=== PATIENT | male | born 1935 | race Caucasian/White ===

== ENCOUNTER 2024-02-09 09:50 | Emergency (ER) | payer OTHER, SELFPAY ==
[2024-02-09 09:55] VITALS: BP 127/83
[2024-02-09 11:05] VITALS: BP 121/69
[2024-02-09 11:20] VITALS: BMI 25.3
[2024-02-09 11:23] LABS: % Basophils 0.4 % (0-2); % Eosinophils 2.9 % (0-6); % Immature Granulocytes 0.4 % (0-0.5); % Lymphocytes 14.3 % (20.5-51.1); % Monocytes 11.5 % (1.7-9.3); % Neutrophils 70.5 % (42.2-75.2); Absolute Eosinophils 0.2 10^3/uL (0-0.7); Absolute Monocytes 0.8 10^3/uL (0.1-0.6); Absolute Neutrophils 4.9 10^3/uL (1.4-6.5); Hematocrit 32.4 % (39.0-52.0); Mean Corpuscular Hgb 31.7 pg (27.0-31.0); Mean Corpuscular Volume 93.4 fL (80.0-94.0); Mean Platelet Volume 10.5 fL (7.4-10.4); Nucleated Red Blood Cells % 0 % (-); Platelet Count 238 10^3/uL (130-400); Red Blood Cell Count 3.47 10^6/uL (4.70-6.10); Red Cell Dist. Width 14.2 % (11.5-14.5)
[2024-02-09 11:39] LABS: ALT (SGPT) 24 U/L (0-50); AST (SGOT) 31 U/L (17-59); Albumin 2.9 g/dl (3.5-5.0); Alkaline Phosphatase 124 U/L (38-126); Blood Urea Nitrogen 40 mg/dl (9-20); Calcium 8.3 mg/dl (8.4-10.2); Carbon Dioxide 21 mmol/L (22-30); Chloride 108 mmol/L (98-107); Estimated Creatinine Clearance 27 ml/min; Glucose 166 mg/dl (70-99); Lipase 39 U/L (23-300); Potassium 4.7 mmol/L (3.5-5.1); Sodium 132 mmol/L (135-145); Total Bilirubin 0.7 mg/dl (0.2-1.3); Total Protein 5.1 g/dl (6.3-8.2); eGFR 36.21
--- NOTE | 2024-02-09 12:13 | ED.GENMED ---
History of Present Illness
General
Chief Complaint: Abdominal Pain
Source: patient
Exam Limitations: none
Time Seen by Provider: 02/09/24 10:37
Nursing documentation reviewed up to this point in time: agreed with
Travel History
Have you had any contact with someone who has COVID-19?: No
Do you have any symptoms of coronavirus? Fever > 100 degrees, chills, cough, shortness of breath, sore throat, loss of taste or smell, muscle aches, or headache?: No
History of Present Illness
History of Present Illness:
88 y/o M with h/o HTNM HLD, s/p gastric bypass, cad
here with ruq pain x 5 days
also feels pain in his right shoulder as well
the pain is worse with deep breathing and changing position
he tried tylenol yesterday, nothing today
saw his PCP 4 dyas ago and was given rx for a 'blister pack' like when he had gout treatment (steroid??)
he also was told to have blood work which he had at [facility] but the results aren't back yet
pain got worse today so he came in
it is not post prandial no nausea, vomiting, dairrhea,
pt has never had dvt/pe, no recent travel or surgeries
he denies any trauma
he is not coughing but says that if he does cough that it would hurt.
Past History
Past History
ED Past Medical History: CAD, COPD, GERD, HTN, Hypercholesterolemia, NM and Renal failure
ED Past Surgical History: Cardiac, Orthopedic, Tonsilectomy and Other (Left inguinal herniorrhaphy, partial gastrectomy/vagotomy)
Social History
Tobacco: Former smoker
Alcohol: None
Drug: None
Personal:
Living: with family
Employment: Retired
Family History
Family History: CAD
Review of Systems
Review of Systems
Allergies reviewed?: Yes
All Other Systems: Not applicable
Phy Exam
Physical Exam
Physical Exam:
GENERAL: Alert , in no apparent distress
EYE: pupils equal and reactive
NECK: Supple
ENT: o/p clr, mmm.
CARDIAC: Regular rate and rhythm .
LUNGS: Clear breath sounds bilaterally, no acute respiratory distress, no wheezes/rales/rhonchi
pleuritic right sided chest pain
ABDOMEN: Soft, moderate RUQ tenderness; +irizarry's sign; , no r/g, no cvat, normal bowel sounds
NEUROLOGICAL: Alert and oriented, no focal neuro deficits
SKIN: Warm and dry, skin intact.
MUSCULOSKELETAL: No edema, well perfused.
PSYCH: Normal and appropriate interaction.
Course
Orders/Labs/Results
Orders:
Orders
02/09/24 10:54
Acetaminophen [Tylenol] 1,000 mg PO NOW STA
US Abdomen Complete/Upper Urgent
Comment:
Reason For Exam: ruq pain, h/o gallstones
02/09/24 10:55
Electrocardiogram (*1) Urgent
Reason for Study: Abdominal Pain
EKG- Treatment ONCE
02/09/24 11:12
Complete Blood Count/With Diff Urgent
Comprehensive Metabolic Panel Urgent
Lipase Urgent
02/09/24 12:19
CT Chest Pe Study Urgent
Comment:
Reason For Exam: right sided pleutuic pain, possibly with new cance
02/09/24 14:37
Troponin I Urgent
Abnormal Lab Results
02/09/24
11:12
RBC 3.47 L 10^6/uL
(4.70-6.10)
Hgb 11.0 L g/dL
(13.0-18.0)
Hct 32.4 L %
(39.0-52.0)
MCH 31.7 H pg
(27.0-31.0)
MPV 10.5 H fL
(7.4-10.4)
Absolute Lymphs (auto) 1.0 L 10^3/uL
(1.2-3.4)
Absolute Monos (auto) 0.8 H 10^3/uL
(0.1-0.6)
Lymphocytes % 14.3 L %
(20.5-51.1)
Monocytes % 11.5 H %
(1.7-9.3)
Sodium 132 L mmol/L
(135-145)
Chloride 108 H mmol/L
(98-107)
Carbon Dioxide 21 L mmol/L
(22-30)
BUN 40 H mg/dl
(9-20)
Creatinine 1.8 H mg/dL
(0.7-1.3)
Glucose 166 H mg/dl
(70-99)
Calcium 8.3 L mg/dl
(8.4-10.2)
Total Protein 5.1 L g/dl
(6.3-8.2)
Albumin 2.9 L g/dl
(3.5-5.0)
02/09/24 11:12
02/09/24 11:12
Vital Signs
Initial and Last Documented VS:
Initial Vital Signs
Temp Pulse Resp BP Pulse Ox
97.4 F 92 18 127/83 97
02/09/24 09:55 02/09/24 09:55 02/09/24 09:55 02/09/24 09:55 02/09/24 09:55
Last Documented Vital Signs
Temp Pulse Resp BP Pulse Ox
97.4 F 69 16 141/86 90
02/09/24 09:55 02/09/24 15:15 02/09/24 15:15 02/09/24 15:00 02/09/24 15:15
MDM/Problems Addressed
Differential Diagnosis Includes:
PE, pneumonia, cholecystitis, cholelithaisis, rib fx, malignancy
MDM/Problems Addressed:
88 y/o M with ho copd, cad, hlt, hld
here for 5 days worsening RUQ pain an dpain with dep breathing
no sob
no fever
no cough
worse pain with movement
better with lidocaine patch on shoulder where pain is referred
went to pcp and had labs and was given steorid pack which didn't help
here pt is pulse ox 92% on RA (copd) and in no distress
has mild pleuriti cpain
mild RUQ tendneress
labs stable CR 1.8, bun 40 stable
no lft elevation
wbc normal
US unfortuantely shows findings concerning for metastatic disease in liver
given this and pt having pleuritic pain, ct PE to r/o PE which was neg for PE but shows pleural effusion
no obvious pulm malignnacy
pt informed of these results
i spoke with his PCP dr. ni who is now aware and will refer to [facility] for work up
pt walked and had no SOB
pulse ox 90% which is likely pam lovelaceith his COPD
d/w ed attending and d/c zofia
*Critical Care Note
Total Time (30-74mins, 75-104mins- exclusive of procedures): Not Applicable
ED Attending Note
-
Portions of this chart may have been created with voice recognition software.� Occasional wrong word or��sound alike� substitutions may have occurred due to the inherent limitations of voice recognition software.
Discharge Plan
Departure
Patient Disposition: Home (Routine Discharge)
Date of Disposition: 02/09/24
Time of Disposition: 15:14
Patient with high blood pressure during this ER visit?: No
Condition: Fair
Covid-19: Not Applicable
Discharge Problem:
Pleural effusion, Lesion of liver
Instructions: Pleural Effusion (DC)
Prescriptions:
No Action
carvedilol 6.25 MG tablet
6.25 mg PO BID
amlodipine 2.5 MG tablet
2.5 mg PO DAILY
aspirin [Pat Low Dose Aspirin] 81 MG tablet,delayed release (DR/EC)
81 mg PO DAILY
allopurinol 300 MG tablet
300 mg PO Daily
cyanocobalamin (vitamin B-12) 1,000 mcg/mL Solution
1,000 mcg IM QMONTH Qty: 0
biotin 800 MCG tablet
800 mcg PO DAILY
furosemide 20 MG tablet
20 mg PO DAILY
turmeric-turmeric root extract 1 EACH capsule
1 ea PO DAILY
Metamucil 3.4 gram/5.4 gram Powder
1 tbsp PO DAILY
atorvastatin [Lipitor] 80 mg Tablet
80 mg PO HS
Theragen Tablet
1 tab PO DAILY
potassium citrate 10 mEq (1,080 mg) Tablet Extended Release
10 meq PO BID
Referrals:
Car Ni MD [Family Provider] - Follow up in 2-3 days
Heraclio Kraft MD [Active] - Follow up in 1 week ([facility])
Activity Restrictions/Additional Instructions:
Your pain is probably due to the fluid that is in the base of your right lung. This does not look to be from an infection.
You also have what looks to be masses in your liver which could be concerning for metastatic disease. I spoke with dr. ni so that he can help you navigate the next steps. You are going to need further workup with probably an MRI of your
abdomen.
You should watch her symptoms closely and return to the ER for any worsening pain, shortness of breath, low oxygen level, fever etc.
Take Tylenol as needed for pain
Interventions
Interventions:
*Risk Screen - Suicide Last Done: 02/09/24 11:20
*General Assessment Last Done: 02/09/24 11:20
*Neglect/Abuse Screening Last Done: 02/09/24 11:20
ED- Fall Risk Assessment Last Done: 02/09/24 11:20
*ED COVID-19 Vaccine History Last Done: 02/09/24 11:20
JL-Mejcug-Piczwrcfvm Assessment Last Done: 02/09/24 11:20
[2024-02-09 12:24] VITALS: BP 142/70
[2024-02-09] MEDS: TYLENOL 1000 MG PO (12:38)
[2024-02-09 13:14] VITALS: BP 144/64
--- NOTE | 2024-02-09 13:21 | EDRN ---
Pt states pain in his RUQ w/ movement has subsided from 9-08/27 when moving to a 3/10 now.
[2024-02-09 14:00] VITALS: BP 120/67
--- NOTE | 2024-02-09 14:31 | EDRN ---
Blood for troponin sent to lab, observed by another RN. No results and will now replace order in order to redraw and resend blood tube.
[2024-02-09 15:00] VITALS: BP 141/86
[2024-02-09 15:07] LABS: Troponin I < 0.012 ng/ml
--- NOTE | 2024-02-09 15:25 | EDRN ---
Pt ambulated from his room #32 to desk where MDs sit and Shanon MEI was informed POX on RA was 88-91% w/ good pleth throughout his walk. Pt did not have any feeling of being SOB, had no tachypnea, and no increased WOB.
== END 2024-02-09 15:48 | disposition home or self-care (01) ==
LOC: EMR 09:50
PROVIDERS: Physician Assistant; EMERGENCY PHYSICIAN Emergency Medicine; FAMILY PHYSICIAN Internal Medicine
DX: J90 Pleural effusion, not elsewhere classified (principal); M25.511 Pain in right shoulder; R10.11 Right upper quadrant pain; K76.9 Liver disease, unspecified; I25.10 Atherosclerotic heart disease of native coronary artery without angina pectoris; K21.9 Gastro-esophageal reflux disease without esophagitis; E78.00 Pure hypercholesterolemia, unspecified; I12.9 Hypertensive chronic kidney disease with stage 1 through stage 4 chronic kidney disease, or unspecified chronic kidney disease; N18.9 Chronic kidney disease, unspecified; J44.9 Chronic obstructive pulmonary disease, unspecified; M19.90 Unspecified osteoarthritis, unspecified site; I25.2 Old myocardial infarction; Z79.82 Long term (current) use of aspirin; Z87.891 Personal history of nicotine dependence; Z98.84 Bariatric surgery status; Z88.5 Allergy status to narcotic agent
CPT/HCPCS: 99285; 71275; 76700; 80053; 83690; 84484; 85025; 93005; Q9967

== ENCOUNTER → 2024-02-13 08:10 | Outpatient (REF) | payer OTHER, SELFPAY | LOC: PET 08:10 | PROVIDERS: ATTENDING PHYSICIAN Internal Medicine | DX: C78.7 Secondary malignant neoplasm of liver and intrahepatic bile duct (principal); Z85.820 Personal history of malignant melanoma of skin | CPT/HCPCS: 78816; A9552 ==

== ENCOUNTER 2024-02-24 06:54 | Outpatient (REF) | payer OTHER, SELFPAY ==
[2024-02-24 07:35] VITALS: BP 125/71; BP_SYST 85
[2024-02-24 07:41] LABS: % Basophils 0.4 % (0-2); % Eosinophils 3.2 % (0-6); % Immature Granulocytes 0.5 % (0-0.5); % Lymphocytes 11.8 % (20.5-51.1); % Monocytes 10.9 % (1.7-9.3); % Neutrophils 73.2 % (42.2-75.2); Absolute Eosinophils 0.3 10^3/uL (0-0.7); Absolute Lymphocytes 0.9 10^3/uL (1.2-3.4); Absolute Monocytes 0.8 10^3/uL (0.1-0.6); Absolute Neutrophils 5.7 10^3/uL (1.4-6.5); Hematocrit 33.3 % (39.0-52.0); Mean Corpuscular Hgb 31.3 pg (27.0-31.0); Mean Corpuscular Volume 94.6 fL (80.0-94.0); Nucleated Red Blood Cells % 0 % (-); Platelet Count 504 10^3/uL (130-400); Red Blood Cell Count 3.52 10^6/uL (4.70-6.10); Red Cell Dist. Width 14.3 % (11.5-14.5); White Blood Cell Count 7.7 10^3/uL (4.8-10.8)
[2024-02-24 07:46] LABS: INR 1.11; PT 14.1 Sec (11.4-14.6)
[2024-02-24 08:06] LABS: Blood Urea Nitrogen 43 mg/dl (9-20); Calcium 8.7 mg/dl (8.4-10.2); Carbon Dioxide 21 mmol/L (22-30); Chloride 105 mmol/L (98-107); Glucose 95 mg/dl (70-99); Potassium 4.8 mmol/L (3.5-5.1); Sodium 134 mmol/L (135-145); eGFR 28.46
[2024-02-24 09:15] VITALS: BP 118/62
[2024-02-24 09:40] VITALS: BP 112/64
[2024-02-24 10:10] VITALS: BP 110/62
[2024-02-24 10:40] VITALS: BP 121/66
[2024-02-24 11:30] VITALS: BP 123/81
== END 2024-02-24 11:30 | disposition home or self-care (01) ==
LOC: RADI 06:54
PROVIDERS: ATTENDING PHYSICIAN Internal Medicine
DX: C78.7 Secondary malignant neoplasm of liver and intrahepatic bile duct (principal); C80.1 Malignant (primary) neoplasm, unspecified; D68.8 Other specified coagulation defects
CPT/HCPCS: 88307; 36415; 47000; 76942; 80048; 85025; 85610; 88333; 88341; 88342; 99152; 99153